=== PATIENT | male | born 1970 | race Caucasian/White ===

== ENCOUNTER 2019-03-06 13:45 | Inpatient (IN) | payer BC ==
[2019-03-06 17:30] LABS: ADD MAN DIFF? NO
[2019-03-06 17:40] LABS: WHITE BLOOD COUNT 7.6 10^3/ul (4.8-10.8)
[2019-03-06 17:40] LABS: ABNORMAL IP MESSAGE 1; BASOPHILS % 0.3 % (0.0-2.0); EOSINOPHILS # 0.1 10^3/ul (0.0-0.5); EOSINOPHILS % 0.8 % (0.0-7.0); HEMATOCRIT 41.7 % (42.0-52.0); HEMOGLOBIN 12.9 g/dl (14.0-18.0); LYMPHOCYTES # 0.4 10^3/ul (0.8-2.9); LYMPHOCYTES % 5.4 % (15.0-51.0); MEAN CORPUSCULAR HEMOGLOBIN 23.9 pg (29.0-33.0); MEAN CORPUSCULAR HGB CONC 30.9 g/dl (32.0-37.0); MEAN CORPUSCULAR VOLUME 77.4 fl (82.0-101.0); MEAN PLATELET VOLUME 9.7 fl (7.4-10.4); MONOCYTE # 0.5 10^3/ul (0.3-0.9); MONOCYTES % 7.1 % (0.0-11.0); NEUTROPHIL # 6.5 10^3/ul (1.6-7.5); NEUTROPHILS % 85.9 % (39.0-77.0); PLATELET COUNT 192 10^3/UL (140-415); POSITIVE DIFF @See below; RED BLOOD COUNT 5.39 10^6/ul (4.70-6.10); RED CELL DISTRIBUTION WIDTH 19.6 % (11.5-14.5)
[2019-03-06 17:42] LABS: ADD UMIC NO; UR ASCORBIC ACID 20 mg/dL (NEGATIVE); UR BILIRUBIN (Dip) NEGATIVE (NEGATIVE); UR BLOOD (Dip) NEGATIVE (NEGATIVE); UR CLARITY CLEAR (CLEAR); UR COLOR YELLOW (YELLOW); UR GLUCOSE (Dip) NEGATIVE (NEGATIVE); UR KETONES (Dip) NEGATIVE (NEGATIVE); UR LEUKOCYTE ESTERASE (Dip) NEGATIVE Leu/ul (NEGATIVE); UR NITRITE (Dip) NEGATIVE (NEGATIVE); UR SPECIFIC GRAVITY (Dip) 1.013 (1.003-1.030); UR TOTAL PROTEIN (Dip) NEGATIVE (NEGATIVE); UR UROBILINOGEN (Dip) NEGATIVE (NEGATIVE)
[2019-03-06 18:00] LABS: ALANINE AMINOTRANSFERASE 39 IU/L (13-69); ALBUMIN 2.7 g/dl (3.3-4.9); ALBUMIN/GLOBULIN RATIO 0.93; ALKALINE PHOSPHATASE 86 IU/L (42-121); ANION GAP 2 (5-13); ASPARTATE AMINO TRANSFERASE 42 IU/L (15-46); BILIRUBIN,INDIRECT 0.4 mg/dl (0-1.1); BILIRUBIN,TOTAL 0.4 mg/dl (0.2-1.3); BLOOD UREA NITROGEN 21 mg/dl (7-20); CALCIUM 7.8 mg/dl (8.4-10.2); CARBON DIOXIDE 32 mmol/L (21-31); CHLORIDE 100 mmol/L (97-110); Estimated GFR > 60 mL/min (>60); GLUCOSE 111 mg/dl (70-220); POTASSIUM 3.5 mmol/L (3.5-5.1); SODIUM 134 mmol/L (135-144); TOTAL PROTEIN 5.6 g/dl (6.1-8.1)
[2019-03-06 18:09] LABS: B-TYPE NATRIURETIC PEPTIDE 729 PG/ML (0-125)
[2019-03-06] MEDS ORDERED: ACETAMINOPHEN 500 MG TAB (19:50)
[2019-03-06] MEDS ORDERED: ONDANSETRON 4 MG INJ IV ×2 (20:00→20:30)
[2019-03-06] MEDS ORDERED: ACETAMINOPHEN 325 MG TAB PO (20:00)
[2019-03-06] MEDS ORDERED: DOCUSATE SODIUM 100 MG CAP PO (20:30)
[2019-03-06] MEDS ORDERED: NACL 0.9% 3 ML SYG IV (20:30)
[2019-03-06] MEDS ORDERED: BISACODYL (EC) 5 MG TAB PO (20:30)
[2019-03-06] MEDS: AMIODARONE 200 MG TAB PO (21:00)
[2019-03-06] MEDS: POTASSIUM CHLORIDE (SR) 20 MEQ TAB PO (21:42)
[2019-03-06] MEDS: ATORVASTATIN 40 MG TAB PO (21:42)
[2019-03-06] MEDS: DOCUSATE SODIUM 100 MG CAP PO (21:42)
[2019-03-06 21:45] LABS: INR 3.14; PROTIME 32.3 Sec (11.9-14.9); PT RATIO 2.5
[2019-03-07] MEDS: BUMETANIDE 1 MG INJ IV ×2 (00:24→17:52)
[2019-03-07] MEDS: PHYTONADIONE 10 MG in DEXTROSE 5% 50 ML IVPB (07:03)
[2019-03-07] MEDS: LEVOTHYROXINE 100 MCG TAB PO (07:03)
[2019-03-07] MEDS: FUROSEMIDE 40 MG INJ IV (08:43)
[2019-03-07] MEDS: DOCUSATE SODIUM 100 MG CAP PO ×2 (08:44→21:14)
[2019-03-07] MEDS: AMIODARONE 200 MG TAB PO (08:44)
[2019-03-07] MEDS: POTASSIUM CHLORIDE (SR) 20 MEQ TAB PO ×2 (08:44→21:14)
[2019-03-07 09:09] LABS: HEMOGLOBIN A1C 5.8 % (0-5.9)
[2019-03-07 09:18] LABS: LACTATE DEHYDROGENASE 587 IU/L (313-618)
[2019-03-07 09:23] LABS: MAGNESIUM 1.7 mg/dl (1.7-2.5)
[2019-03-07 09:23] LABS: CHOL/HDL RATIO 4.4 RATIO; CHOLESTEROL 151 mg/dl (100-200); HDL CHOLESTEROL 34 mg/dl (28-71); LDL CHOLESTEROL,CALCULATED 100 mg/dl; TRIGLYCERIDES 84 mg/dl (0-149)
[2019-03-07 09:25] LABS: IRON 42 ug/dl (35-150)
[2019-03-07 09:35] LABS: % IRON SATURATION 11 % SAT (22-52); TOTAL IRON BINDING CAPACITY 375 ug/dl (241-421)
[2019-03-07] MEDS: SPIRONOLACTONE 50 MG TAB PO (09:38)
[2019-03-07 09:50] LABS: HEPATITIS B SURFACE ANTIGEN NEGATIVE (NEGATIVE)
[2019-03-07 09:54] LABS: FERRITIN 17.5 ng/ml (11.1-264.0)
[2019-03-07 10:07] LABS: HEPATITIS C VIRAL ANTIBODY NEGATIVE (NEGATIVE)
[2019-03-07 10:08] LABS: HEPATITIS B SURFACE ANTIBODY NEGATIVE (NEGATIVE)
[2019-03-07 11:12] LABS: TYPE AND SCREEN 1 1
[2019-03-07 13:09] LABS: INR 1.76; PROTIME 20.6 Sec (11.9-14.9); PT RATIO 1.6
[2019-03-07] MEDS: LIDOCAINE 1% (MPF) 5 ML VIAL (17:17)
[2019-03-07 18:04] LABS: FLD MN% 82.4 %; FLD PMN% 17.6 %; FLD RBC 0 /uL; FLD WBC 34 /cmm
[2019-03-07 19:36] LABS: FLD TYPE PLEURAL
[2019-03-07 19:36] LABS: FLD CLARITY CLEAR; FLD COLOR YELLOW
[2019-03-07 19:48] LABS: FLUID GLUCOSE 92 mg/dl
[2019-03-07 19:49] LABS: FLUID TOTAL PROTEIN < 2.0 g/dl
[2019-03-07 19:55] LABS: FLUID LD 179 U/L; FLUID TYPE FLUID
[2019-03-07] MEDS ORDERED: ENOXAPARIN 100 MG/ML SYG SC (21:00)
[2019-03-07] MEDS: ATORVASTATIN 40 MG TAB PO (21:14)
[2019-03-07] MEDS: ENOXAPARIN 60 MG/0.6 ML SYG SC (22:09)
[2019-03-08] MEDS: BUMETANIDE 1 MG INJ IV ×2 (06:39→17:54)
[2019-03-08] MEDS: LEVOTHYROXINE 100 MCG TAB PO (06:40)
[2019-03-08 07:12] LABS: ANION GAP 2 (5-13); BLOOD UREA NITROGEN 18 mg/dl (7-20); CALCIUM 8.4 mg/dl (8.4-10.2); CARBON DIOXIDE 31 mmol/L (21-31); CHLORIDE 100 mmol/L (97-110); CREATININE 0.76 mg/dl (0.61-1.24); Estimated GFR > 60 mL/min (>60); GLUCOSE 88 mg/dl (70-220); SODIUM 133 mmol/L (135-144)
[2019-03-08] MEDS: ACETAMINOPHEN 325 MG TAB PO (08:22)
[2019-03-08] MEDS: DOCUSATE SODIUM 100 MG CAP PO ×2 (08:23→21:30)
[2019-03-08] MEDS: SPIRONOLACTONE 50 MG TAB PO (08:24)
[2019-03-08] MEDS: POTASSIUM CHLORIDE (SR) 20 MEQ TAB PO ×2 (08:25→21:30)
[2019-03-08] MEDS: ENOXAPARIN 60 MG/0.6 ML SYG SC ×2 (08:29→21:37)
[2019-03-08] MEDS: AMIODARONE 200 MG TAB PO (08:51)
[2019-03-08] MEDS ORDERED: WARFARIN 2 MG TAB PO (17:00)
[2019-03-08] MEDS: ATORVASTATIN 40 MG TAB PO (21:30)
[2019-03-09] MEDS: LEVOTHYROXINE 100 MCG TAB PO (06:12)
[2019-03-09 07:34] LABS: ADD MAN DIFF? NO
[2019-03-09 07:42] LABS: ABNORMAL IP MESSAGE 1; BASOPHILS % 0.4 % (0.0-2.0); EOSINOPHILS # 0.1 10^3/ul (0.0-0.5); EOSINOPHILS % 0.7 % (0.0-7.0); HEMOGLOBIN 12.5 g/dl (14.0-18.0); LYMPHOCYTES # 0.6 10^3/ul (0.8-2.9); LYMPHOCYTES % 7.9 % (15.0-51.0); MEAN CORPUSCULAR HEMOGLOBIN 23.6 pg (29.0-33.0); MEAN CORPUSCULAR HGB CONC 31.3 g/dl (32.0-37.0); MEAN CORPUSCULAR VOLUME 75.6 fl (82.0-101.0); MEAN PLATELET VOLUME 10.1 fl (7.4-10.4); MONOCYTE # 0.6 10^3/ul (0.3-0.9); MONOCYTES % 8.3 % (0.0-11.0); NEUTROPHIL # 5.9 10^3/ul (1.6-7.5); NEUTROPHILS % 82.3 % (39.0-77.0); PLATELET COUNT 216 10^3/UL (140-415); POSITIVE DIFF @See below; RED BLOOD COUNT 5.29 10^6/ul (4.70-6.10); RED CELL DISTRIBUTION WIDTH 19.6 % (11.5-14.5)
[2019-03-09 07:42] LABS: WHITE BLOOD COUNT 7.1 10^3/ul (4.8-10.8)
[2019-03-09 08:17] LABS: INR 1.07; PT RATIO 1.1
[2019-03-09 08:21] LABS: ANION GAP 3 (5-13); BLOOD UREA NITROGEN 18 mg/dl (7-20); CALCIUM 8.5 mg/dl (8.4-10.2); CARBON DIOXIDE 31 mmol/L (21-31); CHLORIDE 100 mmol/L (97-110); Estimated GFR > 60 mL/min (>60); GLUCOSE 84 mg/dl (70-220); MAGNESIUM 1.9 mg/dl (1.7-2.5); POTASSIUM 4.4 mmol/L (3.5-5.1); SODIUM 134 mmol/L (135-144)
[2019-03-09] MEDS: POTASSIUM CHLORIDE (SR) 20 MEQ TAB PO ×2 (08:43→21:03)
[2019-03-09] MEDS: AMIODARONE 200 MG TAB PO (08:44)
[2019-03-09] MEDS: SPIRONOLACTONE 50 MG TAB PO (08:44)
[2019-03-09] MEDS: DOCUSATE SODIUM 100 MG CAP PO (08:45)
[2019-03-09] MEDS: ENOXAPARIN 60 MG/0.6 ML SYG SC (08:49)
[2019-03-09] MEDS: BUMETANIDE 1 MG TAB PO ×2 (08:50→17:37)
[2019-03-09] MEDS: ATORVASTATIN 40 MG TAB PO (21:03)
[2019-03-09] MEDS: FAMOTIDINE 20 MG TAB PO (21:03)
[2019-03-10 05:53] LABS: ADD MAN DIFF? NO
[2019-03-10 05:59] LABS: ABNORMAL IP MESSAGE 1; BASOPHILS % 0.4 % (0.0-2.0); EOSINOPHILS # 0.1 10^3/ul (0.0-0.5); EOSINOPHILS % 0.9 % (0.0-7.0); HEMATOCRIT 38.7 % (42.0-52.0); HEMOGLOBIN 12.4 g/dl (14.0-18.0); LYMPHOCYTES # 0.5 10^3/ul (0.8-2.9); LYMPHOCYTES % 6.8 % (15.0-51.0); MEAN CORPUSCULAR HEMOGLOBIN 24.3 pg (29.0-33.0); MEAN CORPUSCULAR VOLUME 75.9 fl (82.0-101.0); MEAN PLATELET VOLUME 9.9 fl (7.4-10.4); MONOCYTE # 0.6 10^3/ul (0.3-0.9); MONOCYTES % 8.2 % (0.0-11.0); NEUTROPHIL # 5.9 10^3/ul (1.6-7.5); NEUTROPHILS % 83.3 % (39.0-77.0); PLATELET COUNT 216 10^3/UL (140-415); POSITIVE DIFF @See below; RED CELL DISTRIBUTION WIDTH 18.6 % (11.5-14.5)
[2019-03-10 05:59] LABS: WHITE BLOOD COUNT 7.1 10^3/ul (4.8-10.8)
[2019-03-10] MEDS: LEVOTHYROXINE 100 MCG TAB PO (06:11)
[2019-03-10] MEDS: BUMETANIDE 1 MG TAB PO ×2 (06:12→17:55)
[2019-03-10 06:14] LABS: INR 1.06; PROTIME 13.9 Sec (11.9-14.9); PT RATIO 1.1
[2019-03-10 07:02] LABS: ALANINE AMINOTRANSFERASE 41 IU/L (13-69); ALBUMIN 2.9 g/dl (3.3-4.9); ALBUMIN/GLOBULIN RATIO 0.96; ALKALINE PHOSPHATASE 103 IU/L (42-121); ANION GAP 5 (5-13); ASPARTATE AMINO TRANSFERASE 45 IU/L (15-46); BILIRUBIN,INDIRECT 0.8 mg/dl (0-1.1); BILIRUBIN,TOTAL 0.8 mg/dl (0.2-1.3); BLOOD UREA NITROGEN 18 mg/dl (7-20); CALCIUM 8.8 mg/dl (8.4-10.2); CARBON DIOXIDE 30 mmol/L (21-31); CHLORIDE 98 mmol/L (97-110); CREATININE 0.77 mg/dl (0.61-1.24); Estimated GFR > 60 mL/min (>60); GLUCOSE 92 mg/dl (70-220); POTASSIUM 4.6 mmol/L (3.5-5.1); SODIUM 133 mmol/L (135-144); TOTAL PROTEIN 5.9 g/dl (6.1-8.1)
[2019-03-10 07:05] LABS: LACTATE DEHYDROGENASE 793 IU/L (313-618)
[2019-03-10 07:05] LABS: MAGNESIUM 1.7 mg/dl (1.7-2.5)
[2019-03-10] MEDS: SPIRONOLACTONE 50 MG TAB PO (11:08)
[2019-03-10] MEDS: AMIODARONE 200 MG TAB PO (11:09)
[2019-03-10] MEDS: POTASSIUM CHLORIDE (SR) 20 MEQ TAB PO ×2 (11:11→21:17)
[2019-03-10] MEDS: DOCUSATE SODIUM 100 MG CAP PO (11:12)
[2019-03-10] MEDS: LIDOCAINE 1% (MPF) 5 ML VIAL (14:41)
[2019-03-10 15:25] LABS: FLD MN% 76.5 %; FLD PMN% 23.5 %; FLD RBC 1000 /uL; FLD WBC 51 /cmm
[2019-03-10 15:35] LABS: FLUID LD 225 U/L; FLUID TOTAL PROTEIN < 2.0 g/dl; FLUID TYPE FLUID
[2019-03-10 15:54] LABS: FLD CLARITY CLEAR; FLD COLOR YELLOW
[2019-03-10 15:54] LABS: FLD TYPE THORACENTHESIS
[2019-03-10] MEDS: ATORVASTATIN 40 MG TAB PO (21:17)
[2019-03-10] MEDS: FAMOTIDINE 20 MG TAB PO (21:18)
[2019-03-11] MEDS: BUMETANIDE 1 MG TAB PO (06:34)
[2019-03-11] MEDS: LEVOTHYROXINE 100 MCG TAB PO (06:34)
[2019-03-11 06:43] LABS: INR 1.03; PROTIME 13.6 Sec (11.9-14.9); PT RATIO 1.1
[2019-03-11] MEDS: DOCUSATE SODIUM 100 MG CAP PO (08:06)
[2019-03-11] MEDS: SPIRONOLACTONE 50 MG TAB PO (08:07)
[2019-03-11] MEDS: AMIODARONE 200 MG TAB PO (08:08)
[2019-03-11] MEDS: POTASSIUM CHLORIDE (SR) 20 MEQ TAB PO (08:17)
[2019-03-11] MEDS: ENOXAPARIN 60 MG/0.6 ML SYG SC (08:21)
[2019-03-11] MEDS: WARFARIN 5 MG TAB PO (10:49)
[2019-03-11] MEDS ORDERED: ENOXAPARIN 60 MG/0.6 ML SYG SC (21:00)
[2019-03-12 00:46] LABS: URINE DRUG SCREEN RESULT DRUG(S) DETECTED:
== END 2019-03-11 14:55 | disposition home or self-care (01) | DRG 314 ==
LOC: TEL 03-10 09:33 → E/R 13:45 → TEL 20:01
PROC: 0W993ZZ Drainage of Right Pleural Cavity, Percutaneous Approach (ICD-10-PCS; principal; 2019-03-07)
PROC: 30233K1 Transfusion of Nonautologous Frozen Plasma into Peripheral Vein, Percutaneous Approach (ICD-10-PCS; 2019-03-07)
PROC: 0W9B3ZZ Drainage of Left Pleural Cavity, Percutaneous Approach (ICD-10-PCS; 2019-03-10)
DX: I31.1 Chronic constrictive pericarditis (principal); I50.33 Acute on chronic diastolic (congestive) heart failure; J90 Pleural effusion, not elsewhere classified; I31.9 Disease of pericardium, unspecified; D63.8 Anemia in other chronic diseases classified elsewhere; E87.70 Fluid overload, unspecified; E03.9 Hypothyroidism, unspecified; E78.5 Hyperlipidemia, unspecified; I71.2 Thoracic aortic aneurysm, without rupture; I48.0 Paroxysmal atrial fibrillation; R00.1 Bradycardia, unspecified; R06.00 Dyspnea, unspecified; R91.1 Solitary pulmonary nodule; R63.4 Abnormal weight loss; Z68.21 Body mass index [BMI] 21.0-21.9, adult; Z95.2 Presence of prosthetic heart valve; Z79.01 Long term (current) use of anticoagulants
CPT/HCPCS: 32555; 36415; 36430; 71045; 71250; 76705; 76942; 80048; 80053; 80061; 80307; 81003; 82042; 82728; 82945; 83036; 83540; 83615; 83735; 83880; 84157; 84443; 85025; 85610; 85730; 86706; 86803; 86850; 86900; 86901; 87070; 87102; 87116; 87340; 88104; 88305; 89051; 93005; 93306; 99285-25